=== PATIENT | female | born 1970 | race Caucasian/White ===

== ENCOUNTER 2018-08-30 01:17 | Emergency (ER) | payer BC, OTHER ==
[~2018-08-30] VITALS: Ht 175.3 cm; Wt 94.8 kg
[2018-08-30 01:19] VITALS: BP 152/98
--- NOTE | 2018-08-30 01:28 | NUR ---
PT AMBULATED TO THE RESTROOM. PT TOLERATED WELL
--- NOTE | 2018-08-30 01:29 | NUR ---
PT AMBULATED TO BED #8
--- NOTE | 2018-08-30 01:30 | NUR ---
PATIENT PRESENTED ER WITH C/O ABDOMINAL PAIN, RADIATING TO THE LOWER BACK X 2 HOURS. PAIN IN THE ABDOMEN IS ON THE LEFT SIDE. LAST BM WAS YESTERDAY, NORMAL BOWEL SOUNDS ACTIVE IN ALL 4 Q. DENIES N/V/D OR FEVER.PT A/OX4. NKA. NO MEDICAL HX PATIENT STATES PAIN OF 8/10 AT THIS TIME; VSS; PATIENT POSITIONED FOR COMFORT; HOB ELEVATED; BEDRAILS UP X2; BED DOWN. ER MD MADE AWARE OF PT STATUS.
[2018-08-30] MEDS ORDERED: KETOROLAC 30 MG/ML VIAL IVP ONE (01:40)
--- NOTE | 2018-08-30 01:55 | NUR ---
Patient taken to CT scan via wheelchair by tech.
[2018-08-30 01:57] LABS: APPEARANCE,URINE HAZY (CLEAR); BILIRUBIN,URINE NEGATIVE (NEGATIVE); BLOOD, URINE TRACE-I (NEGATIVE); COLOR,URINE YELLOW (YELLOW); LEUKOCYTE ESTERASE ,URINE NEGATIVE (NEGATIVE); NITRITE, URINE NEGATIVE (NEGATIVE); UGLUCOSE NEGATIVE (NEGATIVE)
--- NOTE | 2018-08-30 02:02 | NUR ---
Pt returned from CT scan.
[2018-08-30 02:03] LABS: BASOPHILS # (AUTO) 0.1 K/uL (0.00-0.22); EOSINOPHILS # (AUTO) 0.1 K/uL (0-0.4); HEMATOCRIT 34.6 % (36-48); MONOCYTES # (AUTO) 0.8 K/uL (0.8-1.0); MONOCYTES % (AUTO) 9.3 % (1.7-9.3); NEUTROPHILS # (AUTO) 5.5 K/uL (1.8-7.7)
[2018-08-30 02:06] LABS: BASOPHILS % (AUTO) 1.2 % (0.0-2.0); HEMOGLOBIN 10.8 g/dL (12.0-16.0); LYMPHOCYTES # (AUTO) 2.4 K/uL (2.5-16.5); LYMPHOCYTES % (AUTO) 27.2 % (20.5-51.1); MEAN CORPUSCULAR HEMOGLOBIN 23 pg (27-31); MEAN CORPUSCULAR HGB CONC 31 g/dL (33-37); MEAN CORPUSCULAR VOLUME 75.1 fL (80-94); NEUTROPHILS % (AUTO) 61.3 % (42.2-75.2); PLATELET COUNT (AUTO) 344 K/uL (140-450); RED CELL DISTRIBUTION WIDTH 16.7 % (11.6-13.7); WHITE BLOOD COUNT (AUTO) 8.9 K/uL (4.8-10.8)
[2018-08-30 02:09] LABS: ANION GAP 7.5 (8-16); CARBON DIOXIDE 30.9 mmol/L (21-32); CREATININE 0.8 mg/dL (0.6-1.3); POTASSIUM 3.4 mmol/L (3.5-5.1)
[2018-08-30 02:10] LABS: RBC,URINE 0-5 (RARE) /HPF (0-5); URINE AMORPHOUS URATE 1+ /HPF (None Seen); WBC,URINE 0-5 (RARE) /HPF (0-5)
[2018-08-30 02:14] LABS: ALBUMIN 3.4 g/dL (3.4-5.0); TOTAL BILIRUBIN 0.2 mg/dL (0.0-1.0)
--- NOTE | 2018-08-30 02:39 | NUR ---
Dr. Allen evaluating patient at bedside.
[2018-08-30] MEDS ORDERED: MORPHINE SULFATE 4 MG/ML SYR IVP ONE (02:45)
--- NOTE | 2018-08-30 03:16 | NUR ---
IV removed, catheter intact and site benign. Applied folded 4x4 gauze and tape to stop bleeding.
[2018-08-30 03:17] VITALS: BP 146/90
--- NOTE | 2018-08-30 03:17 | NUR ---
Patient discharged with v/s stable. Written and verbal after care instructions given and explained. Patient alert, oriented and verbalized understanding of instructions. Ambulatory with steady gait. All questions addressed prior to discharge. ID band removed. Patient advised to follow up with PMD. Rx of Winthrop 5mg-325mg and Motrin 800mg given. Patient educated on indication of medication including possible reaction and side effects. Opportunity to ask questions provided and answered.
== END 2018-08-30 03:17 | disposition home or self-care (01) ==
LOC: MED 01:17
DX: R10.12 Left upper quadrant pain (principal)
CPT/HCPCS: 36415; 74176; 80053; 81001; 81025; 83690; 85025; 87086; 96374; 96375; 99284; J1885; J2270

== ENCOUNTER 2021-04-04 20:43 | Inpatient (IN) | payer OTHER, SELFPAY ==
[~2021-04-04] VITALS: Ht 172.7 cm; Wt 79.4 kg
[2021-04-04 21:08] VITALS: BP 166/98
--- NOTE | 2021-04-04 21:12 | NUR ---
TO LOBBY A/W BED AMBULATORY
[2021-04-04 22:28] LABS: BASOPHILS # (AUTO) 0.1 K/uL (0.00-0.22); BASOPHILS % (AUTO) 0.7 % (0.0-2.0); EOSINOPHILS % (AUTO) 0.3 % (0.0-4.0); HEMOGLOBIN 12.9 g/dL (12.0-16.0); LYMPHOCYTES # (AUTO) 2.4 K/uL (2.5-16.5); LYMPHOCYTES % (AUTO) 18.2 % (20.5-51.1); MEAN CORPUSCULAR HEMOGLOBIN 28 pg (27-31); MEAN CORPUSCULAR HGB CONC 32 g/dL (33-37); MEAN CORPUSCULAR VOLUME 87.2 fL (80-94); MONOCYTES # (AUTO) 0.8 K/uL (0.8-1.0); MONOCYTES % (AUTO) 5.9 % (1.7-9.3); NEUTROPHILS % (AUTO) 74.9 % (42.2-75.2); PLATELET COUNT (AUTO) 339 K/uL (140-450); RED BLOOD CELL COUNT(AUTO) 4.59 MIL/uL (4.20-5.40); RED CELL DISTRIBUTION WIDTH 16.3 % (11.6-13.7); WHITE BLOOD COUNT (AUTO) 13.4 K/uL (4.8-10.8)
--- NOTE | 2021-04-04 22:45 | NUR ---
PT. IS A 50 Y/O FEMALE THAT CAME INTO ED WITH C/O OF ABDOMINAL PAIN. PT. STATES THE PAIN STARTED TODAY AT 6PM. PT. DESCRIBES PAIN IN HER RIGHT SIDE UPPER ABDOMINAL AREA. PT. ALSO STATES THAT IT RADIATES TO MID-BACK. PT. RATES PAIN AT 10/10 PAIN AT THE PAIN SCALE AT THIS TIME. DENIES EATING ANY NEW FOOD. DENIES TRAUMA. DENIES N/V/D. SKIN IS PINK/WARM/DRY; AAOX4 WITH EVEN AND STEADY GAIT; HR EVEN AND REGULAR; PT DENIES ANY FEVER, CP, SOB, OR COUGH AT THIS TIME; VSS; PATIENT POSITIONED FOR COMFORT; HOB ELEVATED; BEDRAILS UP X2; BED DOWN. ER MD MADE AWARE OF PT STATUS. PMH: DENIES ALLERGIES: PIERRE
--- NOTE | 2021-04-04 22:45 | NUR ---
TO BED AMBULATORY
[2021-04-04 22:47] LABS: ALBUMIN 3.6 g/dL (3.4-5.0); ANION GAP 11.7 (8-16); CARBON DIOXIDE 27.4 mmol/L (21-32); CREATININE 0.9 mg/dL (0.6-1.3); POTASSIUM 4.1 mmol/L (3.5-5.1); TOTAL BILIRUBIN 0.2 mg/dL (0.0-1.0)
--- NOTE | 2021-04-04 22:52 | NUR ---
ANA COCHRAN AT BEDSIDE FOR MEDICAL EXAMINATION
[2021-04-04] MEDS ORDERED: MORPHINE SULFATE 4 MG/ML SYR IVP ONE (22:55)
[2021-04-04] MEDS ORDERED: ONDANSETRON 4 MG/2 ML VIAL IVP ONE (22:55)
--- NOTE | 2021-04-05 00:01 | NUR ---
Ultrasound at bedside.
[2021-04-05] MEDS ORDERED: metroNIDAZOLE 500 MG/NS PREMIX 100 ML IV ONE (01:05)
[2021-04-05] MEDS ORDERED: cefTRIAXone 2,000 MG in DEXTROSE 5% 100 ML IV ONE (01:05)
[2021-04-05] MEDS ORDERED: NACL 0.9% 1,000 ML IV ONE (01:05)
[2021-04-05] MEDS ORDERED: MORPHINE SULFATE 4 MG/ML SYR IVP ONE (01:05)
--- NOTE | 2021-04-05 01:30 | NUR ---
RECIEVED CALL FROM GEO FROM [facility], PT. AUTHORIZED TO STAY FOR OBSERVATION.
[2021-04-05] MEDS ORDERED: ONDANSETRON 4 MG/2 ML VIAL IVP PRN ×2 (01:50→19:05)
[2021-04-05] MEDS ORDERED: LORazepam 2 MG/ML VIAL IVP PRN (01:50)
[2021-04-05] MEDS ORDERED: MORPHINE SULFATE 2 MG/ML SYR IVP PRN (01:50)
--- NOTE | 2021-04-05 01:55 | NUR ---
AMADOR SWAB COLLECTED. WALKED TO LAB.
--- NOTE | 2021-04-05 02:12 | NUR ---
PT TAKEN TO CT VIA W/C
--- NOTE | 2021-04-05 02:45 | NUR ---
UPDATED PT. DAUGHTER (PAULA) ON STATUS OF PT. PHONE NUMBER:
[2021-04-05] MEDS ORDERED: cefTRIAXone 2,000 MG VIAL ONE (02:54)
[2021-04-05] MEDS: NACL 0.9% 1,000 ML IV SCH ×3 (03:03→22:30)
--- NOTE | 2021-04-05 04:00 | NUR ---
PT. RESTING WITH EYES CLOSED IN HIGH FOWLERS POSITION. VOICES NO COMPLAINTS AT THIS TIME. NO DISTRESS NOTED.
[2021-04-05] MEDS ORDERED: PIPERACILLIN/TAZOBACTAM 3.375 GM VIAL IV ONE (05:09)
[2021-04-05] MEDS: PIPERACILLIN/TAZOBACTAM 3.375 GM in DEXTROSE 5% 50 ML IV SCH ×3 (05:23→22:29)
--- NOTE | 2021-04-05 07:14 | NUR ---
REPORT GIVEN TO JONATHAN CARREON. TRANSFER OF CARE AT THIS TIME.
--- NOTE | 2021-04-05 07:15 | NUR ---
REPORT AND CONTINUATION OF CARE RECEIVED FROM JONATHAN LEON.
[2021-04-05 08:10] VITALS: BP 139/95
--- NOTE | 2021-04-05 08:10 | NUR ---
Patient will be admitted to care of DR HDZ. Admited to MED SURG. Will go to room 120A. Belongings list completed. Report to JONATHAN HOANG.
[2021-04-05] MEDS: ENOXAPARIN 40 MG/0.4 ML SYR SUBQ SCH (09:00)
[2021-04-05] MEDS ORDERED: CLONIDINE HYDROCHLORIDE 0.1 MG TAB PO PRN (09:15)
--- NOTE | 2021-04-05 09:56 | NUR ---
ENOXAPARIN NOT GIVEN PATIENT IS SCHEDULED FOR SURGERY LATER TODAY. WILL CONTINUE TO MONITOR.
--- NOTE | 2021-04-05 10:35 | NUR ---
PATIENT HAS BEEN SCREENED AND CATEGORIZED LOW NUTRITION RISK. PATIENT WILL BE SEEN WITHIN 7 DAYS OF ADMISSION. 04/11/[address]
[2021-04-05] MEDS ORDERED: BUPIVACAINE-MPF/EPI 0.25% 30 ML VIAL INJ ONE (10:48)
[2021-04-05] MEDS ORDERED: LIDOCAINE 1% 500 MG/50 ML VIAL ONE (10:48)
--- NOTE | 2021-04-05 11:24 | NUR ---
PATIENT COMPLAINS OF PAIN. MORPHINE PRN GIVEN AT THIS TIME. WILL CONTINUE TO MONITOR
[2021-04-05] MEDS: HYDROmorphone 1 MG/ML AMP IVP PRN (14:08)
--- NOTE | 2021-04-05 14:09 | NUR ---
PATIENT COMPLAINS OF ABD PAIN, REPORTS MORPHINE NOT WORKING. PAGED DR. HDZ AND RECEIVED ORDERS FOR DILAUDID. DILAUDID PRN GIVEN AT THIS TIME. OTHER SCHEDULED MEDICATIONS DUE GIVEN. WILL CONTINUE TO MONITOR.
[2021-04-05 16:00] VITALS: BP 150/95
--- NOTE | 2021-04-05 17:00 | NUR ---
PATIENT'S DAUGHTER AT BEDSIDE. NO DISTRESS NOTED. WILL CONTINUE TO MONITOR.
[2021-04-05] MEDS ORDERED: SEVOFLURANE 250 ML BTL INH ONE (18:25)
[2021-04-05] MEDS ORDERED: MIDAZOLAM 2 MG/2 ML VIAL ONE (18:26)
[2021-04-05] MEDS ORDERED: fentaNYL citrate 0.05 MG/ML VIAL ONE (18:26)
[2021-04-05] MEDS ORDERED: SUCCINYLCHOLINE CHLORIDE 200 MG/10 ML VIAL IVP ONE (18:27)
[2021-04-05] MEDS ORDERED: KETOROLAC 30 MG/ML VIAL ONE (19:00)
[2021-04-05] MEDS ORDERED: ROCURONIUM 50 MG/5 ML VIAL IV ONE (19:00)
[2021-04-05] MEDS ORDERED: PROPOFOL 200 MG/20 ML VIAL IV ONE (19:00)
[2021-04-05] MEDS ORDERED: ONDANSETRON 4 MG/2 ML VIAL ONE (19:00)
[2021-04-05] MEDS ORDERED: DEXAMETHASONE 4 MG/ML VIAL ONE (19:00)
--- NOTE | 2021-04-05 19:00 | NUR ---
PATIENT ALERT AND ORIENTED X 4.PT. RN DISCUSSED WITH PATIENT MEDICAL PLAN OF CARE, MEDICATION REGIMEN, FALL AND SAFETY INTERVENTIONS AND MEDICAL PLAN OF CARE. RESPIRATIONS EVEN AND UNLABORED. ACYANOTIC. PATIENT RECEPTIVE TO RN INSTRUCTIONS. PATIENT CALM AND COMPLIANT. RIGHT YEHUDA DRAIN NOTED. 20G IV TO LAC INTACT. ANTIBIOTIC THERAPY IN PROGRESS. LAPAROSCOPIC CHOLECYSTECTOMY NOTED. RIGHT YEHUDA DRAIN INTACT. NO ACUTE DISTRESS NOTED.
[2021-04-05] MEDS ORDERED: LACTATED RINGERS 1,000 ML IV SCH (19:05)
[2021-04-05] MEDS ORDERED: MEPERIDINE 25 MG/ML SYR IVP PRN (19:05)
[2021-04-05] MEDS ORDERED: diphenhydrAMINE 50 MG/ML VIAL IVP PRN (19:05)
[2021-04-05] MEDS ORDERED: HYDROmorphone 1 MG/ML AMP IVP PRN (19:05)
--- NOTE | 2021-04-05 19:22 | NUR ---
GAVE REPORT TO LABORATORY SCIENTIST NURSE FOR CONTINUITY OF CARE. PATIENT IN STABLE CONDITION.
[2021-04-05] MEDS ORDERED: SUGAMMADEX SODIUM 200 MG/2 ML VIAL IV ONE (19:45)
[2021-04-05] MEDS ORDERED: MEPERIDINE 50 MG/ML SYR ONE (19:48)
[2021-04-06] VITALS: BP 138/86
[2021-04-06] MEDS: PIPERACILLIN/TAZOBACTAM 3.375 GM in DEXTROSE 5% 50 ML IV SCH ×3 (05:29→21:51)
[2021-04-06 06:15] LABS: ALBUMIN 2.9 g/dL (3.4-5.0); ANION GAP 12.6 (8-16); CREATININE 0.6 mg/dL (0.6-1.3); MAGNESIUM 1.8 mg/dL (1.8-2.4); POTASSIUM 3.6 mmol/L (3.5-5.1); TOTAL BILIRUBIN 0.3 mg/dL (0.0-1.0)
[2021-04-06 06:23] LABS: BASOPHILS % (AUTO) 0.1 % (0.0-2.0); HEMATOCRIT 35.6 % (36-48); HEMOGLOBIN 11.7 g/dL (12.0-16.0); LYMPHOCYTES # (AUTO) 1.4 K/uL (2.5-16.5); LYMPHOCYTES % (AUTO) 11.3 % (20.5-51.1); MEAN CORPUSCULAR HEMOGLOBIN 29 pg (27-31); MEAN CORPUSCULAR HGB CONC 33 g/dL (33-37); MEAN CORPUSCULAR VOLUME 86.9 fL (80-94); MONOCYTES # (AUTO) 0.8 K/uL (0.8-1.0); MONOCYTES % (AUTO) 6.5 % (1.7-9.3); NEUTROPHILS # (AUTO) 9.9 K/uL (1.8-7.7); NEUTROPHILS % (AUTO) 82.1 % (42.2-75.2); PLATELET COUNT (AUTO) 307 K/uL (140-450); RED CELL DISTRIBUTION WIDTH 15.6 % (11.6-13.7); WHITE BLOOD COUNT (AUTO) 12.1 K/uL (4.8-10.8)
--- NOTE | 2021-04-06 07:30 | NUR ---
Received report from pm nurse Connie. Pt resting in bed, respirations even & nonlabored in room air, no signs of distress. Call light within reach.
[2021-04-06 08:00] VITALS: BP 153/86
[2021-04-06] MEDS: ENOXAPARIN 40 MG/0.4 ML SYR SUBQ SCH (08:30)
[2021-04-06] MEDS ORDERED: ACETAMINOPHEN 325 MG TAB PO PRN (11:25)
--- NOTE | 2021-04-06 12:19 | NUR ---
DC PLANNING: CM SPOKE WITH THE PATIENT AT BEDSIDE AND CONFIRMED HER ADDRESS AND PHONE NUMBER PER HER FACE SHEET. THE PATIENTS CORRECT PHONE NUMBER IS [phone]. SHE LIVES IN A SINGLE STORY HOUSE WITH HER 2 DAUGHTERS AND HAS NO H/O OF HOME HEALTH OR DME. SHE HAS A PCP ASSIGNED BY HER INSURANCE BUT HAS NOT YET SEEN HIM. THE PATIENT WAS ENCOURAGED TO START SEEING HER PCP FOR GENERAL HEALTH MANAGEMENT. THE PATIENT IS INDEPENDENT IN ALL ACTIVITIES AND AMBULATION, AND WILL DC HOME WHEN SHE IS CLINICALLY STABLE. THE PATIENT STATES THAT SHE IS HAVING MILD PAIN AND HAS A YEHUDA DRAIN WHICH IS ANTICIPATED TO BE DC'D PRIOR TO HER DISCHARGE. CM WILL FOLLOW FOR NEEDS.
[2021-04-06 16:00] VITALS: BP 138/80
--- NOTE | 2021-04-06 18:00 | NUR ---
Dr. Wu removed YEHUDA drain at bedside, site covered with dry gauze and tape. Pt c/o mild pain that is tolerable.
--- NOTE | 2021-04-06 19:00 | NUR ---
PATIENT RECEIVED IN BED, ALERT AND ORIENTED X 4. RN DISCUSSED WITH PATIENT MEDICAL PLAN OF CARE, MEDICATION MANAGEMENT AND FALL AND SAFETY INTERVENTIONAL MEASURES. PATIENT RECEPTIVE TO INSTRUCTIONS AND CONCERN. VITAL SIGNS STABLE. RESPIRATIONS EVEN AND UNLABORED. NO ACUTE DISTRESS NOTED. WILL CONTINUE WITH PLAN OF CARE.
[2021-04-06] MEDS: HYDROmorphone 1 MG/ML AMP IVP PRN (21:52)
[2021-04-07] VITALS: BP 126/78
[2021-04-07] MEDS: PIPERACILLIN/TAZOBACTAM 3.375 GM in DEXTROSE 5% 50 ML IV SCH (05:04)
[2021-04-07 06:53] LABS: BASOPHILS # (AUTO) 0.1 K/uL (0.00-0.22); BASOPHILS % (AUTO) 0.7 % (0.0-2.0); EOSINOPHILS # (AUTO) 0.1 K/uL (0-0.4); EOSINOPHILS % (AUTO) 0.7 % (0.0-4.0); HEMATOCRIT 35.7 % (36-48); HEMOGLOBIN 11.7 g/dL (12.0-16.0); LYMPHOCYTES # (AUTO) 2.2 K/uL (2.5-16.5); LYMPHOCYTES % (AUTO) 24.5 % (20.5-51.1); MEAN CORPUSCULAR HEMOGLOBIN 29 pg (27-31); MEAN CORPUSCULAR HGB CONC 33 g/dL (33-37); MEAN CORPUSCULAR VOLUME 88.9 fL (80-94); MONOCYTES # (AUTO) 0.9 K/uL (0.8-1.0); MONOCYTES % (AUTO) 10.2 % (1.7-9.3); NEUTROPHILS # (AUTO) 5.7 K/uL (1.8-7.7); NEUTROPHILS % (AUTO) 63.9 % (42.2-75.2); PLATELET COUNT (AUTO) 327 K/uL (140-450); RED BLOOD CELL COUNT(AUTO) 4.01 MIL/uL (4.20-5.40); WHITE BLOOD COUNT (AUTO) 8.9 K/uL (4.8-10.8)
--- NOTE | 2021-04-07 07:30 | NUR ---
RECEIVED PATIENT FROM NIGHTSHIFT RN FOR CONTINUITY CARE. PATIENT IS STABLE. NO S/S OF DISTRESS. RESPIRATIONS ARE EVEN AND UNLABORED. ALL SAFETY PRECAUTIONS IN PLACE.
[2021-04-07] MEDS: ENOXAPARIN 40 MG/0.4 ML SYR SUBQ SCH (09:55)
--- NOTE | 2021-04-07 09:55 | NUR ---
ADMINISTERED SCHEDULED MEDICATION. PATIENT VERBALIZED UNDERSTANDING. ALL SAFETY PRECAUTIONS IN PLACE.
[2021-04-07 09:56] VITALS: BP 138/79
--- NOTE | 2021-04-07 10:15 | NUR ---
ENDORSED DISCHARGE INSTRUCTIONS TO PATIENT. PATIENT VERBALIZED UNDERSTANDING. IV REMOVED; CATH INTACT.
--- NOTE | 2021-04-07 10:50 | NUR ---
DISCHARGED PATIENT FROM UNIT. PATIENT IS STABLE.
== END 2021-04-07 10:50 | disposition home or self-care (01) | DRG 710 ==
LOC: MED 20:43 → MTU 04-05 01:53 → OBSVTOIN 04-05 13:46
PROVIDERS: ADMIT Hospitalist; ATTEND Hospitalist
PROC: 0FT44ZZ Resection of Gallbladder, Percutaneous Endoscopic Approach (ICD-10-PCS; principal; 2021-04-05 17:30)
DX: A41.9 Sepsis, unspecified organism (principal); K65.3 Choleperitonitis; K82.1 Hydrops of gallbladder; K80.12 Calculus of gallbladder with acute and chronic cholecystitis without obstruction; K76.0 Fatty (change of) liver, not elsewhere classified; E66.9 Obesity, unspecified; N28.1 Cyst of kidney, acquired; Z20.822 Contact with and (suspected) exposure to COVID-19; Z68.26 Body mass index [BMI] 26.0-26.9, adult
CPT/HCPCS: G0378 ×12; 36415; 76705; 80053; 81025; 82248; 83690; 83735; 85025; 87081; 88304; 93005; J0330; J0690; J0696; J1100; J1170; J1650; J1885; J2001; J2175; J2250; J2270; J2405; J2543; J2704; J3010; J3490; J7030; J7060; J7120; Q0092